=== PATIENT | female | born 1995 | race Asian ===

== ENCOUNTER 2024-06-07 22:10 | Inpatient (IN) | payer OTHER ==
[2024-06-07] MEDS: ELECTROLYTE-148 SOLN 1,000 ML IV SCH (22:30)
[2024-06-07] MEDS: CITRIC ACID/SODIUM CITRATE 30 ML UNIT-DOSE CUP PO ONE (22:30)
[2024-06-07 22:46] LABS: BASO % 0.4 % (0-2.0); EOS % 3.8 % (0-4.5); HEMATOCRIT 36.1 % (32.4-45.2); HEMOGLOBIN 11.9 GM/dL (10.7-15.3); MCH 28.9 pg (25.7-33.7); MCHC 33.1 g/dl (32.0-36.0); MEAN CELL VOLUME 87.5 fl (80-96); MEAN PLT VOLUME 10.9 fl (7.5-11.1); MONO % 6.6 % (3.8-10.2); NEUT % 67.2 % (42.8-82.8); PLATELET COUNT 126 10^3/uL (134-434); RBC 4.13 M/mm3 (3.60-5.2); RDW 18.1 % (11.6-15.6); WHITE BLOOD COUNT 7.8 K/mm3 (4.0-10.0)
[2024-06-07 22:54] LABS: INR 0.93 (0.83-1.09); PROTHROMBIN TIME (PATIENT) 10.5 SEC (9.7-13.0)
[2024-06-07 22:56] LABS: ACTIVATED PTT 28.9 SECONDS (25.2-36.5)
[2024-06-07 22:57] LABS: CHLORIDE 108 mmol/L (98-107); POTASSIUM 3.9 mmol/L (3.5-5.1); SODIUM 139 mmol/L (136-145)
[2024-06-07 22:58] LABS: CALCIUM 8.6 mg/dL (8.5-10.1)
[2024-06-07 22:59] LABS: ANION GAP 7 mmol/L (4-13); CO2 23 mmol/L (21-32); GLUCOSE,RANDOM 74 mg/dL (74-106)
[2024-06-07 23:02] LABS: CREATININE 0.3 mg/dL (0.55-1.3)
[2024-06-07 23:38] VITALS: BMI 20.5
[2024-06-07 23:54] LABS: HIV INTERPRETATION NEGATIVE (NEGATIVE)
[2024-06-07] MEDS ORDERED: morphine SULFATE/PF 1 MG/2 ML (2cc Syringe - QUVA) ONE (23:55)
[2024-06-08] MEDS ORDERED: PROPOFOL 20 ML ONE (00:29)
[2024-06-08] MEDS ORDERED: MIDAZOLAM HCL 2 MG/2 ML SINGLE DOSE VIAL ONE ×3 (00:44→01:07)
[2024-06-08] MEDS ORDERED: KETAMINE HCL 200 MG/20 ML VIAL ONE (00:48)
[2024-06-08] MEDS ORDERED: FENTANYL CITRATE/PF 50 MCG/ML VIAL ONE (01:09)
[2024-06-08 01:14] LABS: CORD BASE EXCESS -1.7 mmol/L (0-2); CORD BASE EXCESS -1.8 mmol/L (0-2); CORD HCO3 24.5 mmHg (20-29); CORD HCO3 26.6 mmHg (20-29); CORD PCO2 59.5 mmHg (30-78); CORD pH 7.268 (7.14-7.44); CORD pH 7.335 (7.14-7.44)
[2024-06-08] MEDS: OXYTOCIN 20 UNITS in 0.9% NS 20 UNIT/1,000 ML INFUS.BAG IV SCH (02:30)
[2024-06-08] MEDS: ELECTROLYTE-148 SOLN 500 ML IV SCH (02:42)
[2024-06-08] MEDS: CITRIC ACID/SODIUM CITRATE 30 ML UNIT-DOSE CUP PO ONE (02:42)
[2024-06-08] MEDS: ELECTROLYTE-148 SOLN 1,000 ML IV SCH (02:43)
[2024-06-08] MEDS ORDERED: ACETAMINOPHEN INJECTION 100 ML ONE (02:45)
[2024-06-08] MEDS ORDERED: OXYTOCIN 20 UNITS in 0.9% NS 20 UNIT/1,000 ML INFUS.BAG IV ONE (02:45)
[2024-06-08] MEDS: ACETAMINOPHEN 1000 MG/100 ML BAG IVPB SCH ×2 (02:45→10:52)
[2024-06-08] MEDS: ONDANSETRON 4 MG/2 ML VIAL IVPB PRN (04:20)
[2024-06-08] MEDS: IBUPROFEN 800 MG/8 ML IJ IVPB SCH (06:01)
[2024-06-08] MEDS: ENOXAPARIN NA (PORCINE) 40 MG/0.4 ML DISP.SYRIN SQ SCH (09:16)
[2024-06-08 13:42] LABS: POC NITRAZINE POS
[2024-06-08] MEDS: SIMETHICONE 80 MG TAB.CHEW (FP) PO PRN (19:39)
[2024-06-08] MEDS: oxyCODONE HCL 5 MG TABLET PO PRN (19:39)
[2024-06-08] MEDS: SENNOSIDES/DOCUSATE COMBO (SENNA PLUS) TABLET (UD) PO SCH (22:40)
[2024-06-09] MEDS ORDERED: BISACODYL 10 MG SUPP.RECT RC PRN (01:32)
[2024-06-09] MEDS: ACETAMINOPHEN 325 MG TABLET (FP) PO SCH (03:44)
[2024-06-09] MEDS: IBUPROFEN 600 MG TABLET (FP) PO PRN (05:01)
[2024-06-09 08:32] LABS: BASO % 0.3 % (0-2.0); EOS % 3.1 % (0-4.5); HEMATOCRIT 30.8 % (32.4-45.2); HEMOGLOBIN 10.3 GM/dL (10.7-15.3); MCH 29.4 pg (25.7-33.7); MCHC 33.5 g/dl (32.0-36.0); MEAN CELL VOLUME 87.6 fl (80-96); MEAN PLT VOLUME 9.9 fl (7.5-11.1); MONO % 4.8 % (3.8-10.2); NEUT % 77.8 % (42.8-82.8); PLATELET COUNT 120 10^3/uL (134-434); RBC 3.51 M/mm3 (3.60-5.2); RDW 18.5 % (11.6-15.6); WHITE BLOOD COUNT 8.4 K/mm3 (4.0-10.0)
[2024-06-10 22:31] VITALS: RESP 18; TEMP 98.1
[2024-06-11 10:15] VITALS: BP 91/58; PULSE 72
== END 2024-06-11 13:50 | disposition home or self-care (01) | DRG 540 ==
LOC: JLDR 22:10 → J3W 06-08 03:59
PROVIDERS: ADMIT Obstetrics & Gynecology; ATTEND Obstetrics & Gynecology
PROC: 10D00Z1 Extraction of Products of Conception, Low, Open Approach (ICD-10-PCS; principal; 2024-06-08)
DX: O34.219 Maternal care for unspecified type scar from previous cesarean delivery (principal); Z3A.38 38 weeks gestation of pregnancy; Z37.0 Single live birth
CPT/HCPCS: 36415; 36600; 59409; 80048; 82803; 83986-QW; 85025; 85610; 85730; 86780; 86922; 87389; 88307-TC; J0131